=== PATIENT | male | born 1995 | race Caucasian/White ===

== ENCOUNTER 2022-02-27 21:21 | Emergency (ER) | payer OTHER ==
[~2022-02-27] VITALS: Ht 185.4 cm; Wt 128.0 kg
[2022-02-28] MEDS ORDERED: KETOROLAC 60MG/2ML VIAL IM ONE (02:30)
[2022-02-28] MEDS ORDERED: METHOCARBAMOL 500MG TABLET PO ONE (02:30)
[2022-02-28] MEDS ORDERED: LIDO1ADH23 TP (03:27)
[2022-02-28] MEDS ORDERED: METH-773 MT (03:27)
[2022-02-28] MEDS ORDERED: NAPR-681 MT (03:27)
[2022-02-28 03:44] VITALS: BP 115/78
== END 2022-02-28 03:45 | disposition home or self-care (01) ==
LOC: ER 21:21
DX: M54.2 Cervicalgia (principal); M43.6 Torticollis; R51.9 Headache, unspecified; G89.11 Acute pain due to trauma; V44.0XXA Car driver injured in collision with heavy transport vehicle or bus in nontraffic accident, initial encounter; Y93.89 Activity, other specified; Y92.89 Other specified places as the place of occurrence of the external cause; Y99.0 Civilian activity done for income or pay
CPT/HCPCS: 96372; 99283; J1885